=== PATIENT | female | born 1950 | race Caucasian/White ===

== ENCOUNTER 2021-07-24 12:39 | Emergency (ER) | payer MEDICARE, OTHER ==
--- NOTE | 2021-07-24 13:30 | ED Physician Documentation ---
History of Present Illness - Stated complaint Stated Complaint: SOA/EAR PX - Chief complaint Chief Complaint: Resp - Additonal information Additional information: 71-year-old female presents to the emergency department for evaluation of 2 we eks cough, congestion severe body aches and pains. She denies muscle aches but states that everyone of her bones and joints hurt. She denies that she has had any fever. Over the last 2 to 3 days she has begun to have left-sided ear pain and muffled hearing. No drainage. Denies any sore throat. Patient read reports a persistent cough to the point of mid duration but does not have any production of sputum Symptoms began just over 2 weeks ago when she was in [place] visiting family. While there she reports that multiple family members were sick but there was no Covid found. She is not vaccinated for COVID 19. She did see a provider in [place] and was told that she had the flu. No testing was done. She was started on Tamiflu but stopped after 1 dose due to vomiting. When she returned to [place] a few days ago she was able to see a provider at a local clinic. She was started on an inhaler as the provider told her she had "wet" sounding lungs. She was also started on a course of oral antibiotics 2 days ago. Denies tobacco or alcohol use. Review of Systems Constitutional: reports: Myalgias, Fatigue. denies: Fever Eyes: reports: Reviewed and negative Ears: reports: Loss of hearing, Ear pain Nose: reports: Rhinorrhea / runny nose, Congestion Throat: reports: Reviewed and negative Cardiac: reports: Reviewed and negative Respiratory: reports: Dyspnea, Cough, Hemoptysis GI: denies: Abdominal Pain, Diarrhea : reports: Reviewed and negative Skin: reports: Reviewed and negative Musculoskeletal: denies: Neck pain, Back pain PD PAST MEDICAL HISTORY - Allergies Allergies/Adverse Reactions: Allergies Allergy/AdvReac Type Severity Reaction Status Date / Time acetaminophen [From Tylenol] Allergy Unknown Verified 07/24/21 13:00 diphenhydramine Allergy Unknown Verified 07/24/21 13:00 [From Benadryl] Penicillins Allergy Unknown Verified 07/24/21 13:00 PD ED PE NORMAL - General General: Alert and oriented X 3, No acute distress, Well developed/nourished - HEENT HEENT: Atraumatic, Moist mucous membranes, Pharynx benign, Other (Left TM mildly erythematous with an effusion. EAC unremarkable. 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 Eye Opening: Spontaneous Motor: Obeys Commands Verbal: Oriented GCS Score: 15 Results - Vitals Vitals: Vital Signs - 24 hr 07/24/21 12:51 Temperature 36.2 C L Heart Rate 62 Respiratory 24 Rate Blood Pressure 131/81 H O2 Saturation 96 Oxygen O2 Source Room air - EKG (time done) 1323 Rate: Rate (enter#) (59) Rhythm: NSR Intervals: Normal CA QRS: Normal Ischemia: Normal ST segments Compare to prior EKG: Old EKG unavailable Computer interpretation: Agree with computer - Labs Labs: Laboratory Tests 07/24/21 07/24/21 07/24/21 13:24 13:24 13:43 WBC 7.1 RBC 4.50 Hgb 13.1 Hct 39.2 MCV 87.1 MCH 29.1 MCHC 33.4 RDW 12.7 Plt Count 238 MPV 9.5 Neut # (Auto) 4.7 Lymph # (Auto) 1.5 Hayes # (Auto) 0.7 Eos # (Auto) 0.0 Baso # (Auto) 0.0 Absolute Nucleated RBC 0.00 Nucleated RBC % 0.0 Sodium Potassium Chloride Carbon Dioxide Anion Gap BUN Creatinine Estimated GFR (MDRD) Glucose Calcium Total Bilirubin AST ALT Alkaline Phosphatase Troponin I High Sens B-Natriuretic Peptide 128 H Total Protein Albumin Globulin Albumin/Globulin Ratio Lipase Urine Color YELLOW Urine Clarity CLEAR Urine pH 7.5 Ur Specific [place] 1.010 Urine Protein NEGATIVE Urine Glucose (UA) NEGATIVE Urine Ketones NEGATIVE Urine Occult Blood NEGATIVE Urine Nitrite NEGATIVE Urine Bilirubin NEGATIVE Urine Urobilinogen 0.2 (NORMAL) Ur Leukocyte Esterase NEGATIVE Ur Microscopic Review NOT INDICATED Urine Culture Comments NOT INDICATED 07/24/21 07/24/21 13:53 13:53 WBC RBC Hgb Hct MCV MCH MCHC RDW Plt Count MPV Neut # (Auto) Lymph # (Auto) Hayes # (Auto) Eos # (Auto) Baso # (Auto) Absolute Nucleated RBC Nucleated RBC % Sodium 137 Potassium 3.9 Chloride 103 Carbon Dioxide 23 Anion Gap 11.0 BUN 14 Creatinine 0.9 Estimated GFR (MDRD) 62 L Glucose 103 H Calcium 8.9 Total Bilirubin 0.7 AST 20 ALT 24 Alkaline Phosphatase 71 Troponin I High Sens 3.1 B-Natriuretic Peptide Total Protein 6.6 L Albumin 3.4 Globulin 3.2 Albumin/Globulin Ratio 1.1 Lipase 26 Urine Color Urine Clarity Urine pH Ur Specific [place] Urine Protein Urine Glucose (UA) Urine Ketones Urine Occult Blood Urine Nitrite Urine Bilirubin Urine Urobilinogen Ur Leukocyte Esterase Ur Microscopic Review Urine Culture Comments - Rads (name of study) cxr Radiology: Final report received (No acute cardiopulmonary abnormality) PD MEDICAL DECISION MAKING - ED course Complexity details: reviewed results, re-evaluated patient, considered differential, d/w patient ED course: 71-year-old female presents emergency department for evaluation of 2 weeks cough though nonproductive body aches fatigue and now left ear pain. She was seen by primary care provider 2 days ago started on an inhaler and antibiotics but is not feeling improved. Not vaccinated for COVID-19. Screening labs today are essentially unremarkable. No leukocytosis. EKG nonischemic negative troponin. Chest x-ray is without acute focal opacity. Her cardiopulmonary auscultation was unremarkable and her vital signs here have been stable without hypoxia. She does have a mild small left-sided ear effusion but without fever my suspicion for acute otitis media is rather low. Despite this she is on antibiotics. I have advised the patient to do saline nasal rinses which I think will help with congestion and draining of the ear if effusion. Patient is advised to follow-up closely with her primary provider. Respiratory PCR panel is pending and I will notify her if it is positive. Departure - Departure Disposition: 01 Home, Self Care Clinical Impression: Bronchitis, Acute effusion of left ear Condition: Stable Record reviewed to determine appropriate education?: Yes Comments: Sara, I am sorry that you have been feeling ill for so long. You are seen today in the emergency department for per productive cough for about 2 weeks as well as pain in your left ear with an effusion. Your primary provider a few days ago started you on a course of antibiotics as well as an inhaler. Here in the emergency department your vital signs are normal. Your oxygen levels have been 98% or better. Your lungs are essentially clear. We did do a screening chest x-ray which was normal. No findings of pneumonia. Your screening labs including a blood count and chemistry panel are also essentially normal. Your EKG is normal for age. There is no findings of infection in the urine. I think that it is important you continue to use the inhaler as already prescribed. Continue the antibiotics. I believe that the left ear infusion is going to improve if you use a saline nasal rinse once or twice a day. This will help reduce the congestion in your nose, open your eustachian tube and allow the effusion to drain. Without fevers or other worrisome clinical findings I do not think you have a bacterial otitis media. If despite this treatment at home you feel that your symptoms or not improving then please return immediately to the ER. You do have a respiratory viral PCR panel pending I will call you only if the results are positive this evening.
[2021-07-24] MEDS ORDERED: SODIUM CHLORIDE 0.9% 1,000 ML IV STA (13:31)
[2021-07-24 13:34] LABS: BASOPHILS % (AUTO) 0.4 %; EOSINOPHILS % (AUTO) 0.4 %; HCT - HEMATOCRIT 39.2 % (37.0-47.0); HGB - HEMOGLOBIN 13.1 g/dL (12.0-16.0); LYMPHOCYTES # (AUTO) 1.5 10^3/uL (1.5-3.5); LYMPHOCYTES % (AUTO) 21.3 %; MEAN CORPUSCULAR HEMOGLOBIN 29.1 pg (27.0-31.0); MEAN CORPUSCULAR HGB CONC 33.4 g/dL (32.0-36.0); MEAN CORPUSCULAR VOLUME 87.1 fL (81.0-99.0); MEAN PLATELET VOLUME 9.5 fL (7.9-10.8); MONOCYTES # (AUTO) 0.7 10^3/uL (0.0-1.0); MONOCYTES % (AUTO) 9.5 %; NEUTROPHILS # (AUTO) 4.7 10^3/uL (1.5-6.6); NEUTROPHILS % (AUTO) 66.7 %; PLT - PLATELET COUNT 238 10^3/uL (130-450); RED CELL DISTRIBUTION WIDTH 12.7 % (12.0-15.0); WHITE BLOOD COUNT 7.1 x10^3/uL (4.8-10.8)
--- NOTE | 2021-07-24 13:53 | XRAY Report ---
PROCEDURE: Chest 1 View X-Ray INDICATIONS: Chest Pain TECHNIQUE: One view of the chest was acquired. COMPARISON: None. FINDINGS: Surgical changes and devices: Left breast clips. Lungs and pleura: No pleural effusions or pneumothorax. Lungs are clear. Mediastinum: Mediastinal contours appear normal. Heart size is normal. Bones and chest wall: No suspicious bony lesions. Overlying soft tissues appear unremarkable. IMPRESSION: No acute cardiopulmonary abnormality. Reviewed by: Cameron Luna MD on 07/24/2021 12:52 PM [facility] Approved by: Cameron Luna MD on 07/24/2021 12:52 PM [facility] Station ID: [id number]
[2021-07-24 13:57] LABS: BILIRUBIN,URINE NEGATIVE (NEGATIVE); GLUCOSE, URINE (UA) NEGATIVE (NEGATIVE); KETONES,URINE (UA) NEGATIVE (NEGATIVE); LEUKOCYTE ESTERASE, URINE NEGATIVE (NEGATIVE); NITRITE,URINE NEGATIVE (NEGATIVE); OCCULT BLOOD,URINE NEGATIVE (NEGATIVE); PH,URINE 7.5 PH (5.0-7.5); PROTEIN,URINE NEGATIVE (NEGATIVE); UROBILINOGEN,URINE 0.2 (NORMAL) E.U./dL (NORMAL)
[2021-07-24 14:03] LABS: CLARITY,URINE CLEAR (CLEAR)
[2021-07-24 14:28] LABS: ALBUMIN 3.4 g/dL (3.2-5.5); ALBUMIN/GLOBULIN RATIO 1.1 (1.0-2.2); BILIRUBIN,TOTAL 0.7 mg/dL (0.2-1.0); CALCIUM 8.9 mg/dL (8.5-10.3); CREATININE 0.9 mg/dL (0.4-1.0); POTASSIUM 3.9 mmol/L (3.5-5.0); TOTAL PROTEIN 6.6 g/dL (6.7-8.2)
[2021-07-24 15:51] LABS: B. PARAPERTUSSIS- RESP PCR PAN NOT DETECTED; B. PERTUSSIS- RESP PCR PANEL NOT DETECTED; C. PNEUMONIAE- RESP PCR PANEL NOT DETECTED; CORONAVIRUS 229E-RESP PCR NOT DETECTED; CORONAVIRUS HKU1-RESP PCR NOT DETECTED; CORONAVIRUS NL63-RESP PCR NOT DETECTED; CORONAVIRUS OC43-RESP PCR NOT DETECTED; HUMAN METAPNEUMOVIRUS NOT DETECTED; INFLUENZA A H3- RESP PCR PANEL DETECTED; INFLUENZA B - RESP PCR PANEL NOT DETECTED; M. PNEUMONIAE- RESP PCR PANEL NOT DETECTED; PARAINFLUENZA VIRUS 1 NOT DETECTED; PARAINFLUENZA VIRUS 2 NOT DETECTED; PARAINFLUENZA VIRUS 3 NOT DETECTED; PARAINFLUENZA VIRUS 4 NOT DETECTED; RHINOVIRUS/ENTEROVIRUS NOT DETECTED; RSV- RESP PCR PANEL NOT DETECTED; SARS-CoV-2 -RESP PCR PANEL NOT DETECTED
[2021-07-24 16:45] VITALS: BP 133/76
== END 2021-07-24 15:30 | disposition home or self-care (01) ==
LOC: ED 12:39
DX: J40 Bronchitis, not specified as acute or chronic (principal); J10.1 Influenza due to other identified influenza virus with other respiratory manifestations; H92.02 Otalgia, left ear; H65.192 Other acute nonsuppurative otitis media, left ear; Z20.822 Contact with and (suspected) exposure to COVID-19
CPT/HCPCS: 0202U; 36415; 80053; 81001; 81003; 83690; 83880; 84484; 85025; 87086; 93005; 99284